=== PATIENT | male | born 1970 | race Hispanic/Latino ===

== ENCOUNTER → 2016-12-18 | Outpatient (CLI) | payer BC ==
[2016-12-18 10:42] LABS: HEMOGLOBIN A1C 7.23 % (4.2-6.0); MEAN BLOOD GLUCOSE (CALC) 154.759 mg/dL
== END ==
LOC: MOB LAB 10:02
DX: E11.9 Type 2 diabetes mellitus without complications (principal)
CPT/HCPCS: 36415; 83036